=== PATIENT | male | born 1975 | race American Indian/Alaskan Native ===

== ENCOUNTER 2018-09-01 12:56 | Outpatient (CLI) | payer BC ==
[2018-09-01 13:19] LABS: Hematocrit 43.8 % (35.5-45.6); Hemoglobin 15.1 gm/dl (11.8-15.2); Mean Corpuscular HGB Conc 35 % (32-34); Mean Corpuscular Volume 83 fl (84-94); Platelet Count 241 K/mm3 (140-440); Red Blood Count 5.29 M/mm3 (3.65-5.03); Red Cell Distribution Width 13.4 % (13.2-15.2)
[2018-09-01 13:38] LABS: Creatinine,Urine 233.2 mg/dL (0.1-20.0)
[2018-09-01 13:39] LABS: Microalbumin/Creatinine Ratio 5.1 ug/mg
[2018-09-01 13:49] LABS: Alanine Aminotransferase 42 units/L (7-56); BUN/Creatinine Ratio 23; Blood Urea Nitrogen 16 mg/dL (9-20); Calcium 9.7 mg/dL (8.4-10.2); Hemolysis Index 9; LDL Cholesterol,Direct 161 mg/dL (50-130)
[2018-09-01 14:20] LABS: Chol/HDL Ratio 4.22 %; HDL Cholesterol 48 mg/dL (40-59)
[2018-09-01 14:52] LABS: Anisocytosis 1+; Basophils % (Manual) 0 % (0.0-1.8); Platelet Estimate Consistent w Auto; Total Cells Counted 100
== END 2018-09-01 12:57 | disposition home or self-care (01) ==
LOC: LAB 12:56
DX: E11.9 Type 2 diabetes mellitus without complications (principal); E66.01 Morbid (severe) obesity due to excess calories; N39.0 Urinary tract infection, site not specified; Z79.899 Other long term (current) drug therapy
CPT/HCPCS: 36415; 80053; 80061; 82043; 83036; 84153; 85007; 85025; 87806

== ENCOUNTER 2018-10-21 11:00 | Outpatient (CLI) | payer BC | END 2018-10-21 11:01 | disposition home or self-care (01) | LOC: SLR 11:00 | PROVIDERS: ATTEND Otolaryngology | DX: G47.33 Obstructive sleep apnea (adult) (pediatric) (principal); R40.0 Somnolence; R06.83 Snoring | CPT/HCPCS: 95810 ==

== ENCOUNTER 2018-11-04 11:00 | Outpatient (CLI) | payer BC | END 2018-11-04 11:01 | disposition home or self-care (01) | LOC: SLR 11:00 | PROVIDERS: ATTEND Otolaryngology | DX: G47.33 Obstructive sleep apnea (adult) (pediatric) (principal); R40.0 Somnolence; R06.83 Snoring; E66.9 Obesity, unspecified | CPT/HCPCS: 95811 ==

== ENCOUNTER 2019-01-14 06:38 | Outpatient (CLI) | payer BC | END 2019-01-14 06:39 | disposition home or self-care (01) | LOC: ECHO 06:38 | PROVIDERS: ATTEND Specialist | DX: Z01.810 Encounter for preprocedural cardiovascular examination (principal); I07.1 Rheumatic tricuspid insufficiency | CPT/HCPCS: 93306 ==

== ENCOUNTER 2019-05-30 09:11 | Outpatient (CLI) | payer BC ==
[2019-05-30 09:36] LABS: Basophils # (Auto) 0.1 K/mm3 (0.0-0.1); Basophils % (Auto) 0.8 % (0.0-1.8); Eosinophils # (Auto) 0.4 K/mm3 (0.0-0.4); Hematocrit 40.5 % (35.5-45.6); Hemoglobin 13.5 gm/dl (11.8-15.2); Lymphocytes # (Auto) 3.1 K/mm3 (1.2-5.4); Lymphocytes % (Auto) 44.7 % (13.4-35.0); Mean Corpuscular HGB Conc 33 % (32-34); Mean Corpuscular Volume 84 fl (84-94); Monocytes # (Auto) 0.4 K/mm3 (0.0-0.8); Monocytes % (Auto) 6.4 % (0.0-7.3); Platelet Count 162 K/mm3 (140-440); Red Blood Count 4.81 M/mm3 (3.65-5.03); Red Cell Distribution Width 13.7 % (13.2-15.2)
[2019-05-30 09:51] LABS: Alanine Aminotransferase 48 units/L (7-56); Albumin 3.9 g/dL (3.9-5); BUN/Creatinine Ratio 16; Blood Urea Nitrogen 11 mg/dL (9-20); Calcium 8.9 mg/dL (8.4-10.2); Chol/HDL Ratio 3.62 %; HDL Cholesterol 43 mg/dL (40-59); Hemolysis Index 1; LDL Cholesterol,Direct 108 mg/dL (50-130)
== END 2019-05-30 09:12 | disposition home or self-care (01) ==
LOC: LAB 09:11
PROVIDERS: ATTEND Surgery Plastic and Reconstructive Surgery
DX: E11.9 Type 2 diabetes mellitus without complications (principal); I10 Essential (primary) hypertension; R74.0 Nonspecific elevation of levels of transaminase and lactic acid dehydrogenase [LDH]; E66.01 Morbid (severe) obesity due to excess calories; E78.5 Hyperlipidemia, unspecified
CPT/HCPCS: 36415; 80053; 80061; 83036; 85025

== ENCOUNTER 2019-07-15 06:22 | Day surgery (SDC) | payer BC ==
[~2019-07-15 06:22] MED LIST: SODIUM CHLORIDE 0.9% 1000 ML 1,000 ML IV SCH
--- NOTE | 2019-07-15 08:07 | Discharge Summary ---
Providers - Providers Date of Admission: 07/15/2019 Date of discharge: 07/15/19 Attending physician: JUNIE CAT MD Primary care physician: CIERA BAKER MD Hospitalization Reason for admission: egd Condition: Good Procedures: egd Disposition: DC-01 TO HOME OR SELFCARE Core Measure Documentation - Palliative Care Palliative Care/ Comfort Measures: Not Applicable - Core Measures Any of the following diagnoses?: none Exam - Physical Exam Narrative exam: unchanged from pre-op h&p - Constitutional Vitals: Temp Pulse Resp BP Pulse Ox 98.3 F 85 19 121/79 92 07/15/19 07:46 07/15/19 07:46 07/15/19 07:46 07/15/19 07:46 07/15/19 07:46 Plan Activity: no restrictions Diet: low carbohydrate Follow up with: CIERA BAKER MD [Primary Care Provider] - 7 Days
--- NOTE | 2019-07-15 08:15 | Operative Report ---
Operative Report Operative Report: OPERATIVE REPORT - EGD DATE: 07/15/2019 SURGERY: Upper endoscopy w/ antral biopsy SURGEON: Catarina Guillen M.D. [employer]: n/a PRE OP DX: GERD, morbid obesity POST OP DX: GERD, morbid obesity, gastritis TYPE OF ANESTHESIA: MAC. ESTIMATED BLOOD LOSS: None. COMPLICATIONS: None. SPECIMENS REMOVED: None. FINDINGS: 1. Small hiatal hernia. 2. antral gastritis 3. Otherwise, normal esophagus, stomach and first portion of duodenum. INDICATIONS:INDICATION FOR PROCEDURE: Patient is a 44-year-old male with a long history of morbid obesity. He is planned to have a weight loss procedure and is here for preoperative planning EGD. PROCEDURE DETAILS: After consent was reviewed, patient was taken back to the operating room where patient was placed in the left lateral decubitus position and a bite block was placed in the mouth. After a time-out was called, MAC anesthesia was initiated. I then passed the endoscope into his oropharynx, into his esophagus, visualized the entire esophagus, which was all within normal limits. I then visualized the stomach and the first portion of the duodenum and there were no abnormalities I could clearly visualize, with the exception of antral gastritis. I then retroflexed the scope in the stomach and visualized the hiatus and I could see a small hiatal hernia. A cold biopsy was taken of the antral mucosa to evaluate for h.pylori as part of the complete pre-op work up for bariatric surgery. I then desufflated the stomach and removed the endoscope. Patient tolerated procedure well and was transferred to recovery room in good and stable condition.
--- NOTE | 2019-07-15 08:22 | Anesthesia Consultation ---
Anesthesia Consult and Med Hx Date of service: 07/15/19 - Airway Anesthetic Teeth Evaluation: Good ROM Head & Neck: Adequate Mental/Hyoid Distance: Inadequate Mallampati Class: Class III Intubation Access Assessment: Possibly Difficult - Pre-Operative Health Status ASA Pre-Surgery Classification: ASA3 Proposed Anesthetic Plan: MAC - Pulmonary Hx Smoking: Yes (Quit 3 months ago; 10 year history) Hx Sleep Apnea: Yes (CPAP at night) - Cardiovascular System Hx Hypertension: Yes - Central Nervous System Hx Back Pain: Yes - Endocrine Hx Liver Disease: Yes (Hyperlipidemia) Hx Non-Insulin Dependent Diabetes: Yes - Other Systems Hx Obesity: Yes
--- NOTE | 2019-07-15 08:33 | Anesthesia Day of Surgery ---
Anesthesia Day of Surgery - Day of Surgery Patient Examined: Yes Patient H&P Reviewed: Yes Patient is NPO: Yes Beta Blockers: No
[2019-07-15] MEDS ORDERED: KETAMINE/STERILE WATER 50 MG/ML SYRINGE ONE (08:53)
[2019-07-15] MEDS ORDERED: PROPOFOL 200 MG/20 ML VIAL IV ONE ×2 (08:53)
[2019-07-15 10:04] VITALS: BP 117/61
--- NOTE | 2019-07-15 10:44 | Post Anesthesia Evaluation ---
- Post Anesthesia Evaluation Patient Participated: Yes Airway Patent: Yes Stable Respiratory Function: Yes Nausea/Vomiting: No Temp > 96.8F: Yes Pain Manageable: Yes Adequeate Hydration: Yes Anesthesia Complications: No
== END 2019-07-15 06:23 | disposition home or self-care (01) ==
LOC: GIO 06:22
PROVIDERS: ATTEND Surgery
DX: K21.9 Gastro-esophageal reflux disease without esophagitis (principal); E66.01 Morbid (severe) obesity due to excess calories; K29.70 Gastritis, unspecified, without bleeding; K44.9 Diaphragmatic hernia without obstruction or gangrene; I10 Essential (primary) hypertension; G47.30 Sleep apnea, unspecified; E11.9 Type 2 diabetes mellitus without complications; F17.210 Nicotine dependence, cigarettes, uncomplicated; Z79.899 Other long term (current) drug therapy; Z79.84 Long term (current) use of oral hypoglycemic drugs; Z68.44 Body mass index [BMI] 60.0-69.9, adult; Z98.890 Other specified postprocedural states
CPT/HCPCS: 43239; 82962; 88305; 88342; J2704; J7030

== ENCOUNTER 2019-08-22 07:12 | Outpatient (CLI) | payer BC ==
[2019-08-22 07:54] LABS: Basophils # (Auto) 0.1 K/mm3 (0.0-0.1); Basophils % (Auto) 0.6 % (0.0-1.8); Eosinophils # (Auto) 0.3 K/mm3 (0.0-0.4); Eosinophils % (Auto) 3.2 % (0.0-4.3); Hematocrit 46.8 % (35.5-45.6); Hemoglobin 15.5 gm/dl (11.8-15.2); Lymphocytes # (Auto) 2.6 K/mm3 (1.2-5.4); Lymphocytes % (Auto) 27.4 % (13.4-35.0); Mean Corpuscular HGB Conc 33 % (32-34); Mean Corpuscular Volume 83 fl (84-94); Monocytes # (Auto) 0.8 K/mm3 (0.0-0.8); Monocytes % (Auto) 8.4 % (0.0-7.3); Platelet Count 240 K/mm3 (140-440); Red Blood Count 5.64 M/mm3 (3.65-5.03); Red Cell Distribution Width 13.7 % (13.2-15.2)
[2019-08-22 08:09] LABS: Alanine Aminotransferase 44 units/L (7-56); Albumin 3.8 g/dL (3.9-5); BUN/Creatinine Ratio 14; Blood Urea Nitrogen 11 mg/dL (9-20); Chol/HDL Ratio 4.24 %; HDL Cholesterol 37 mg/dL (40-59); Hemolysis Index 7; LDL Cholesterol,Direct 105 mg/dL (50-130)
[2019-08-22 12:35] LABS: Creatinine,Urine 859.6 mg/dL (0.1-20.0); Microalbumin/Creatinine Ratio 8.1 ug/mg
[2019-08-22 12:37] LABS: Hepatitis C Virus Antibody Non-Reactive (NonReactive)
[2019-08-24 22:12] LABS: ANA Screen, IFA Negative (Negative)
== END 2019-08-22 07:13 | disposition home or self-care (01) ==
LOC: LAB 07:12
PROVIDERS: ATTEND Surgery Plastic and Reconstructive Surgery
DX: E11.9 Type 2 diabetes mellitus without complications (principal); Z79.899 Other long term (current) drug therapy; I10 Essential (primary) hypertension; E78.5 Hyperlipidemia, unspecified
CPT/HCPCS: 36415; 80053; 80061; 82043; 82390; 82728; 83036; 83520; 84443; 85025; 86038; 86705; 86706; 86708; 86709; 86803

== ENCOUNTER 2019-11-25 07:27 | Outpatient (CLI) | payer BC ==
[2019-11-25 07:52] LABS: Basophils % (Auto) 0.5 % (0.0-1.8); Eosinophils # (Auto) 0.3 K/mm3 (0.0-0.4); Eosinophils % (Auto) 4.1 % (0.0-4.3); Hematocrit 42.7 % (35.5-45.6); Hemoglobin 14.3 gm/dl (11.8-15.2); Lymphocytes # (Auto) 3.3 K/mm3 (1.2-5.4); Lymphocytes % (Auto) 39.7 % (13.4-35.0); Mean Corpuscular HGB Conc 34 % (32-34); Mean Corpuscular Volume 83 fl (84-94); Monocytes # (Auto) 0.5 K/mm3 (0.0-0.8); Monocytes % (Auto) 6.5 % (0.0-7.3); Platelet Count 190 K/mm3 (140-440); Red Blood Count 5.13 M/mm3 (3.65-5.03); Red Cell Distribution Width 14.6 % (13.2-15.2)
[2019-11-25 08:14] LABS: Alanine Aminotransferase 39 units/L (7-56); Albumin 3.9 g/dL (3.9-5); BUN/Creatinine Ratio 16; Blood Urea Nitrogen 11 mg/dL (9-20); Calcium 9.6 mg/dL (8.4-10.2); Hemolysis Index 2; Iron 53 ug/dL (49-181); Total Iron Binding Capacity 245 mcg/dL (250-450)
[2019-11-28 10:43] LABS: Vitamin D, 25-OH, D2 <4 ng/mL
== END 2019-11-25 07:28 | disposition home or self-care (01) ==
LOC: LAB 07:27
PROVIDERS: ATTEND Surgery
DX: Z00.00 Encounter for general adult medical examination without abnormal findings (principal); K30 Functional dyspepsia; D50.9 Iron deficiency anemia, unspecified; E61.8 Deficiency of other specified nutrient elements; Z98.84 Bariatric surgery status
CPT/HCPCS: 36415; 80053; 82306; 82607; 83550; 83970; 84425; 85025

== ENCOUNTER 2020-08-17 10:16 | Outpatient (CLI) | payer BC ==
[2020-08-17 11:59] LABS: Basophils % (Auto) 0.5 % (0.0-1.8); Eosinophils # (Auto) 0.2 K/mm3 (0.0-0.4); Hematocrit 46.3 % (35.5-45.6); Hemoglobin 15.4 gm/dl (11.8-15.2); Mean Corpuscular HGB Conc 33 % (32-34); Mean Corpuscular Volume 86 fl (84-94); Monocytes # (Auto) 0.4 K/mm3 (0.0-0.8); Platelet Count 183 K/mm3 (140-440); Red Blood Count 5.39 M/mm3 (3.65-5.03); Red Cell Distribution Width 12.7 % (13.2-15.2)
[2020-08-17 12:27] LABS: Alanine Aminotransferase 50 units/L (7-56); Albumin 4.4 g/dL (3.9-5); Blood Urea Nitrogen 14 mg/dL (9-20); Chol/HDL Ratio 3.21 %; HDL Cholesterol 55 mg/dL (40-59); Hemolysis Index 3; Iron 116 ug/dL (49-181); LDL Cholesterol,Direct 109 mg/dL (50-130); Total Iron Binding Capacity 290 mcg/dL (250-450)
[2020-08-17 12:30] LABS: BUN/Creatinine Ratio 20
== END 2020-08-17 10:17 | disposition home or self-care (01) ==
LOC: LAB 10:16
PROVIDERS: ATTEND Surgery
DX: E66.01 Morbid (severe) obesity due to excess calories (principal); E11.9 Type 2 diabetes mellitus without complications; K30 Functional dyspepsia; Z98.84 Bariatric surgery status
CPT/HCPCS: 36415; 80053; 80061; 82306; 82607; 82728; 83036; 83550; 84425; 84443; 85025

== ENCOUNTER 2020-08-31 06:42 | Outpatient (CLI) | payer BC ==
--- NOTE | 2020-08-31 08:17 | Ultrasound Report ---
LIMITED RUQ ABDOMINAL ULTRASOUND INDICATION: ABNORMAL LEVELS OF OTHER SERUM ENZYMES. COMPARISON: No relevant prior imaging study available. FINDINGS: Pancreas: Visualized portions show no significant abnormality. Abdominal Aorta: No significant abnormality. IVC: No significant abnormality. Liver: The liver measures 19.0 cm in length. The liver is diffusely echogenic consistent with modera te fatty infiltration. No focal liver lesion is detected on ultrasound. Normal hepatopedal blood flow in the main portal vein. Gallbladder: No significant abnormality. Bile ducts: No significant abnormality. Common bile duct measures 3.4 mm. Right kidney: No significant abnormality visualized. Free fluid: None. Additional Findings: None. IMPRESSION: Moderate hepatomegaly with moderate diffuse fatty infiltration.. Signer Name: Jose Campos Jr, MD Signed: 08/31/2020 8:13 AM Workstation Name: [id number]
== END 2020-08-31 06:43 | disposition home or self-care (01) ==
LOC: US 06:42
PROVIDERS: ATTEND Surgery
DX: R74.8 Abnormal levels of other serum enzymes (principal)
CPT/HCPCS: 76705

== ENCOUNTER 2021-05-20 10:16 | Outpatient (CLI) | payer BC ==
[2021-05-20 10:54] LABS: Basophils % (Auto) 0.7 % (0.0-1.8); Eosinophils # (Auto) 0.2 K/mm3 (0.0-0.4); Eosinophils % (Auto) 3.6 % (0.0-4.3); Hematocrit 42.7 % (35.5-45.6); Hemoglobin 14.2 gm/dl (11.8-15.2); Lymphocytes # (Auto) 2.7 K/mm3 (1.2-5.4); Lymphocytes % (Auto) 45.7 % (13.4-35.0); Mean Corpuscular HGB Conc 33 % (32-34); Mean Corpuscular Volume 87 fl (84-94); Monocytes # (Auto) 0.3 K/mm3 (0.0-0.8); Monocytes % (Auto) 5.9 % (0.0-7.3); Platelet Count 157 K/mm3 (140-440); Red Blood Count 4.91 M/mm3 (3.65-5.03); Red Cell Distribution Width 13.1 % (13.2-15.2)
[2021-05-20 11:11] LABS: Alanine Aminotransferase 26 units/L (7-56); Blood Urea Nitrogen 10 mg/dL (9-20); Calcium 9.1 mg/dL (8.4-10.2); Chol/HDL Ratio 2.92 %; HDL Cholesterol 54 mg/dL (40-59); Hemolysis Index 14; Iron 121 ug/dL (49-181); LDL Cholesterol,Direct 99 mg/dL (50-130); Total Iron Binding Capacity 258 mcg/dL (250-450)
[2021-05-20 11:22] LABS: BUN/Creatinine Ratio 14
[2021-05-24 15:06] LABS: Vitamin D, 25-OH, D2 <4 ng/mL
== END 2021-05-20 10:17 | disposition home or self-care (01) ==
LOC: LAB 10:16
PROVIDERS: ATTEND Surgery
DX: E55.9 Vitamin D deficiency, unspecified (principal); E11.9 Type 2 diabetes mellitus without complications; K30 Functional dyspepsia; E66.01 Morbid (severe) obesity due to excess calories; Z98.84 Bariatric surgery status
CPT/HCPCS: 36415; 80053; 80061; 82306; 82607; 82728; 83036; 83550; 84425; 84443; 85025